=== PATIENT | female | born 1965 | race Caucasian/White ===

== ENCOUNTER → 2022-11-16 | Outpatient (CLI) | payer BC ==
[~2022-11-16] MED LIST: INVANZ 1GM+NS 50ML IVPB 50 ML IV SCH
== END ==
LOC: DAH 10:00 → EDSTATUS 11-18 11:22
PROVIDERS: ATTEND Surgery
DX: Z01.818 Encounter for other preprocedural examination (principal); K59.00 Constipation, unspecified; Z20.822 Contact with and (suspected) exposure to COVID-19
CPT/HCPCS: 87426; A6260; J1335